=== PATIENT | female | born 1995 | race Caucasian/White ===

== ENCOUNTER 2020-06-23 12:10 | Observation (INO) | payer OTHER ==
[~2020-06-23] VITALS: Ht 154.9 cm; Wt 58.1 kg
[2020-06-23] MEDS ORDERED: PNV1TABL77 PO (12:51)
[2020-06-23 12:56] VITALS: BP 118/66
[2020-06-23] MEDS ORDERED: *CLINICAL-GENTAMICIN DOSING CLINICAL ONE (13:00)
[2020-06-23] MEDS ORDERED: RINGERS SOLUTION,LACTATED 1,000 ML IV SCH (13:30)
[2020-06-23 14:28] LABS: ANION GAP 12 mmol/L (8-16); CALCIUM, TOTAL 8.5 mg/dL (8.8-10.5); CARBON DIOXIDE 22 mmol/L (22-29); CHLORIDE 104 mmol/L (98-107); CREATININE 0.59 mg/dL (0.60-1.30); GLOMERULAR FILTR. RATE CALC > 60 mL/min (>60); GLUCOSE,RANDOM 99 mg/dL (70-110); POTASSIUM 3.7 mmol/L (3.5-5.1); SODIUM SERUM 138 mmol/L (136-145); UREA NITROGEN, BLOOD 12 mg/dL (7-18)
[2020-06-23] MEDS ORDERED: GENTAMICIN 100 MG/NACL ISO-OSM 50 ML IV SCH (15:00)
[2020-06-23] MEDS ORDERED: DEXTROSE 5% IV SCH (15:30)
[2020-06-23] MEDS ORDERED: WATER IV SCH (15:30)
[2020-06-23] MEDS ORDERED: GENTAMICIN SULFATE IV SCH (15:30)
[2020-06-23] MEDS ORDERED: DEXTROSE 5% IV ONE (16:30)
[2020-06-23] MEDS ORDERED: GENTAMICIN SULFATE IV ONE (16:30)
[2020-06-23] MEDS ORDERED: WATER IV ONE (16:30)
== END 2020-06-23 16:45 | disposition home or self-care (01) ==
LOC: 4S 12:10
PROVIDERS: ADMIT Obstetrics & Gynecology; ATTEND Obstetrics & Gynecology
DX: O23.42 Unspecified infection of urinary tract in pregnancy, second trimester (principal); Z3A.16 16 weeks gestation of pregnancy
CPT/HCPCS: 36415; 59025; 80048; 81001; 96365; 99219; J1580 ×2; J7060; J7120